=== PATIENT | male | born 1955 | race Caucasian/White ===

== ENCOUNTER 2020-02-25 09:30 | Outpatient (RCR) | payer OTHER, SELFPAY ==
--- NOTE | 2020-01-27 12:04 | HP.PTEVAL ---
Patient's Visit Information GLORIA GALICIA is a 64 year old M referred to Physical Therapy by BRI Chavez with a diagnosis of STRAIN OF MUSCLE FASCIA AND TENDON OF LOW BACK. Date of Evaluation: 01/27/20 Physical Therapist: Sameer Maher, PT, Cert MDT, OCS - Visit Plan Frequency: 3x /Week Duration: 4 Weeks Plan: PT INTERVENTIONS ALYSSIA EX'S ,MODALTIES PROGRESS TO GRADED DLS /POSTURAL EX'S,LE FLEXABLITY - Subjective This 64 y/o male presents to physical therapy with lumbar strain.Patient intiallly last week January 18 picking up fish tank and felt strain ,then January 24 felt pain when lifting gravel. Then felt sharp left L-S. [facility]en [facility] did seriod injections and pain MEDS/muscle relaxers.Patient had no diagnostics. Patient has no raicular symptoms. Coughing/sneeziing + . Bowel/Bladder-. Aggravating factors sitting,twistiing,bending,lifting. Alleviating walking ,erect posture. Patient symptoms affect function,ADLS and job demnads. Symptoms of back pain affects QOL.Okay to RTW with 5# retstrictions. 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 SOCIAL: SINGLE - Pain Left Back Pain Intensity (Out of 10): 8 Pain Intensity Range: 10 - Objective POSTURE: mild foward posture guarded. GAIT: reciprocal pattern guarded mild foward antalgic. SYMMTICAL: assymtries. PALAPTION: unremarkable. NEURO: denies parathesia/tingling,reflexes L3-4,L4-5,L5-S1 2/3. MMT: right quads/hams/hip 4/5,ankle 5/5,left quads 3+/5 with+ ANR ,hip flexion 4-/5,ankle 4/5. FLEXABLITY: hams mod tight - Special Tests L/S Slump test left side: Positive L/S Slump test right side: Negative L/S Left Straight Leg Raise: Positive L/S Right Straight Leg Raise: Negative Lumbar Standing: Flexion - Mechanical Response: No effect Lumbar Standing: Flexion - Symptoms During Testing: Increases Lumbar Standing: Flexion - Symptoms After Testing: Worse Lumbar Standing: Extension - Mechanical Response: Increases motion Lumbar Standing: Extension - Symptoms During Testing: Decreases Lumbar Standing: Extension - Symptoms After Testing: Better Lumbar Lying: Flexion - Mechanical Response: No effect Lumbar Lying: Flexion - Symptoms During Testing: Increases Lumbar Lying: Flexion - Symptoms After Testing: Worse Lumbar Lying: Extension - Mechanical Response: Increases motion Lumbar Lying: Extension - Symptoms During Testing: Decreases Lumbar Lying: Extension - Symptoms After Testing: Better - Goals Goal 1:: Patient to be I with HEP Goal Time Frame: 4-6 Weeks Goal 2:: Patient to be I with posture/body mechanics Goal Time Frame: 4-6 Weeks Goal 3:: Patient to decrease lumbar ROM for function of recovery Goal Time Frame: 4-6 Weeks Goal 4:: Pateint decrease pain by 70 % or > to increase function and RTW Goal Time Frame: 4-6 Weeks Goal 5:: Patient be d/c to prophalaxis Goal Time Frame: 4-6 Weeks Goal 6:: Patient to improve neck owestry score by 5 points or > to improve QOL. Goal Time Frame: 4-6 Weeks - Rehabilitation Potential Physical Therapy Diagnosis: This patient injuried back at work with mechanism of injury is flexion,responded well with lumbar extension alyssia ex's and correction of posture ,thus appears to have disc with possible derrangement ,blocked with flexion with pain ,poor lumbar ROM ,decrease gait and strength left leg wit + ANR Rehabilitation Potential: Good - Anticipated Interventions Patient/Client Instruction: Educate patient on: Condition, Plan of Care For the Purpose of:: To decrease pain, To increase ROM, To increase oxygenation perfusion, To improve ability to perform ADL's, To increase tolerance to activity/condition/position, To improve performance and independence with ADL's, To improve ability of physical actions for home/community/work/leisure, To improve health of tissue, To decrease soft tissue restriction, To increase flexibility/ROM, To improve ability to perform tasks related to life management Therapeutic Exercise to Include: Strength training, Body mechanics, Postural training, Flexibilty training, Dynamic Lumbar Stabilization, Alyssia Exercises For the Purpose of:: To decrease pain, To decrease swelling/inflammation, To increase ROM, To improve muscle performance and motor function, To improve ability to perform ADL's, To increase tolerance to activity/condition/position, To decrease level of supervision to perform tasks, To improve health of tissue, To decrease soft tissue restriction, To increase flexibility/ROM, To improve ability to perform tasks related to life management TENS: Yes IF ES: Yes Cryotherapy (ice pack, ice massage): Yes Thermo therapy (hot pack): Yes Ultrasound (thermal/non thermal): Yes For the Purpose of:: To decrease pain, To increase ROM, To improve gait and locomotor functions, To improve health of tissue Thank you for the opportunity to evaluate your patient. For Medicare and Medicare HMO plans, please review the plan of care and approve it. It will need to be FAXED BACK to us at [phone] for Medicare purposes. For Medicare only, by signing this I certify the plan of care. Please let me know if there are questions or concerns regarding this plan of care. Physician Signature: Date:
--- NOTE | 2020-02-25 10:06 | HP.PTDCSUM ---
It has been my pleasure to treat GLORIA GALICIA referred by BRI Chavez, with the diagnosis of STRAIN OF MUSCLE FASCIA AND TENDON OF LOW BACK for a total of 12 visit(s). Discharge Date: 02/25/20 Please see the following information for a summary of their discharge status. Subjective: Doing well.RTD Left Back Pain Intensity (Out of 10): 0 % Improvement: 98 Objective/Function: POSTURE: WFL. GAIT: RECIPROCAL PATTTERN. -SLR. MMT: QUADS/HAMS/HIP 5/5,ANKLE 5/5. LUMBAR ROM: WNL Goal 1:: Patient to be I with HEP Goal Progress: Goal Met Goal 2:: Patient to be I with posture/body mechanics Goal Progress: Goal Met Goal 3:: Patient to decrease lumbar ROM for function of recovery Goal Progress: Goal Met Goal 4:: Pateint decrease pain by 70 % or > to increase function and RTW Goal Progress: Goal Met Goal 5:: Patient be d/c to prophalaxis Goal Progress: Goal Met Goal 6:: Patient to improve neck owestry score by 5 points or > to improve QOL. Plan: D/C Discharge Comments: HEP If there are questions or concerns regarding this patient's physical therapy, please feel free to call me at [phone]. Thank you for the referral of this patient. Sincerely, Sameer Maher PT, Cert MDT, OCS
== END 2020-02-25 19:00 | disposition home or self-care (01) ==
LOC: PT 09:30
PROVIDERS: Referring Provider Physician Assistant; Visit Provider Physician Assistant
DX: S39.012D Strain of muscle, fascia and tendon of lower back, subsequent encounter (principal)
CPT/HCPCS: 97014; 97110; 97161; 97530; G0283

== ENCOUNTER → 2023-12-26 | Outpatient (CLI) | payer MEDICARE, SELFPAY ==
[2023-12-26 12:09] LABS: Absolute Lymphocyte Count 0.88 X10^3/uL (0.83-4.51); Absolute Neutrophil Count 2.5 X10^3/uL (2.0-7.7); Basophil# 0.04 X10^3/uL; Eosinophil# 0.22 X10^3/uL; Eosinophils% 5.3 % (0-5); Hematocrit 46.1 % (40-54); Lymphocyte # 0.88 X10^3/ul (0.83-4.51); Lymphocyte % 21.1 % (19-41); Mean Corp Hgb Conc 32.5 g/dL (32-36); Mean Corpuscular Hgb 30.5 pg (27.0-32.0); Mean Corpuscular Volume 93.9 fL (80-94); Mean Platelet Vol. 11.2 fl (6.2-12.0); Monocyte# 0.48 X10^3/uL; Monocyte% 11.5 % (0-10); NRBC Flagged by Analyzer 0 % (0-5); Neutrophil # 2.54 X10^3/uL (2.7-7.7); Neutrophil % 60.9 % (47-70); Platelet Count 203 K/mm3 (150-450); RBC Distribution Width CV 13.4 % (11.6-14.6); RBC Distribution Width SD 46.4 fl (35.1-43.9); Red Blood Count 4.91 M/mm3 (4.6-6.2); White Blood Count 4.2 K/mm3 (4.4-11.0)
[2023-12-26 12:30] LABS: Vitamin D,25 Hydroxy 46.7 ng/mL
[2023-12-26 12:51] LABS: ALB/GLOB Ratio 1.1 RATIO (0.9-2.4); AST(SGOT) 32 U/L (15-37); Alanine Aminotransfer ALT/SGPT 30 U/L (16-61); Albumin, Serum 3.8 g/dL (3.2-5.0); Alkaline Phosphatase 89 U/L (45-117); Anion Gap 6 (5-15); BUN 19 mg/dL (7-18); BUN/Creat Ratio 13.4 RATIO (10-20); Calcium,Total 9.3 mg/dL (8.5-10.1); Chloride 105 mmol/L (98-107); Cholesterol 233 mg/dL (200); Creatinine, Serum 1.42 mg/dL (0.70-1.30); EST Glomerular Filtration Rate 53 mL/min (>60); Est Glom Filt Rate - Afr Amer 64 mL/min (>60); Globulin 3.5 g/dL (2.2-4.2); Glucose 101 mg/dL (74-106); High Density Lipoprotein 52 mg/dL; PSA,Total - Annual Screen 0.75 ng/mL (0.00-4.00); Potassium 5.1 mmol/L (3.5-5.1); Protein, Total 7.3 g/dL (6.4-8.2); Sodium Level 139 mmol/L (136-145); Triglycerides 99 mg/dL; Very Low Density Lipoprotein 20 mg/dL (5-40)
== END | disposition home or self-care (01) ==
LOC: MTLAB 10:01
PROVIDERS: PCP Nurse Practitioner Family; Referring Provider Nurse Practitioner Family; Visit Provider Nurse Practitioner Family
DX: E55.9 Vitamin D deficiency, unspecified (principal); E78.5 Hyperlipidemia, unspecified; I10 Essential (primary) hypertension; Z12.5 Encounter for screening for malignant neoplasm of prostate
CPT/HCPCS: 36415; 80053; 80061; 82306; 84153; 85025; G0103

== ENCOUNTER 2024-01-08 09:46 | Day surgery (SDC) | payer MEDICARE, SELFPAY ==
[2024-01-08] VITALS (8 sets, daily range): BP systolic 111–157; BP diastolic 70–99; PULSE 43–55; RESP 16–18; TEMP 36.1–36.3; O2SAT 97–99; BMI 24.8
[2024-01-08] MEDS: Lactated Ringers 1,000 ML 15 ML IV (10:26)
--- NOTE | 2024-01-08 10:43 | PCM.PRE.AN2 ---
ASA Classification* ASA Classification ASA Classification: 2 Assessment & Plan Anesthesia* Anesthesia Assessment Anesthesia Assessment: Discussed sedation and/or anesthesia options, risks, benefits, and alternatives with patient/parents/legal guardian/POA. Questions invited. The patient/parents/legal guardian/POA seems to understand and agrees to proceed with anesthesia plan. Reviewed the physical assessment, medical history, allergy history and patient home medications list prior to surgery/procedure/anesthetic and documented any changes. Performed airway and anesthesia risk assessments. Anesthesia Type Anesthesia Type: MAC (see pre anesthesia written record for full assessment) Anesthesia Focused Assessment* Temperature: 96.9 F Pulse Rate: 47 Blood Pressure: 157/99 Respiratory Rate: 18 Pulse Ox: 99 Airway Assessment Mouth opens: >3 cm Mallampati Score: II Focused Labs Anesthesia Preop lab: CBC WBC 4.2 K/mm3 (4.4-11.0) L 12/26/23 10:24 RBC 4.91 M/mm3 (4.6-6.2) 12/26/23 10:24 Hgb 15.0 g/dL (13.0-16.5) 12/26/23 10:24 Hct 46.1 % (40-54) 12/26/23 10:24 Plt Count 203 K/mm3 (150-450) 12/26/23 10:24 CHEMISTRY Potassium 5.1 mmol/L (3.5-5.1) 12/26/23 10:24 Sodium 139 mmol/L (136-145) 12/26/23 10:24 BUN 19 mg/dL (7-18) H 12/26/23 10:24 Creatinine 1.42 mg/dL (0.70-1.30) H 12/26/23 10:24 Glucose 101 mg/dL (74-106) 12/26/23 10:24 COAG Pre-Assessment Diagnosis/Proposed Procedure Planned Operative Procedure(s): CSCOPE OA Anesthesia History 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 When Was Last Pacemaker Check QUESTION #4 FULL TEXT: You/Your Family Experience fever (hyperthermia) with Anesthesia Last Oral Intake Last Oral intake: Last Oral Intake NPO since 08:00 01/08/24 10:18 Meds taken in AM with sips of No 01/08/24 10:18 water? Meds patient instructed to take am of surgery PONV PONV - metal grinder: PONV - metal grinder Female No 01/07/24 08:35 HX of Motion Sickness No 01/07/24 08:35 HX of N/V After Surgery No 01/07/24 08:35 Non-Smoker Yes 01/07/24 08:35 Duration of Surgery greater No 01/07/24 08:35 than 60 minutes Number of Risk Factors 1 01/07/24 08:35 PONV Score Low Risk 01/07/24 08:35 Height & Weight Height & Weight: Anesthesia: Height & Weight Height 6 ft 1 in 01/08/24 10:18 Weight: 85.366 kg 01/08/24 10:18 Body Mass Index (BMI) 24.8 01/08/24 10:18 Respiratory Assessment Respiratory Assessment - metal grinder: Respiratory Tract Infection Hx - metal grinder Hx Respiratory Tract Infection No 01/07/24 08:35 STOP Sleep Apnea STOP Sleep Apnea - metal grinder: STOP Sleep Apnea - metal grinder Hx Hypertension No 01/07/24 08:35 Hx Sleep Apnea No 01/07/24 08:35 CPAP BIPAP Do you snore loudly (louder No 01/07/24 08:35 than talking or can be heard Do you often feel tired/ No 01/07/24 08:35 fatigued/ sleepy during daytime? Has anyone observed you stop No 01/07/24 08:35 breathing during sleep? STOP Results Negative 01/07/24 08:35 QUESTION #5 FULL TEXT : Do you snore loudly (louder than talking or can be heard through closed doors)? 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 Specify any problems Hx of Preganancy in last 3 N/A 01/07/24 08:35 Months Nurse Filling Out Transfusion DSCHRIBER 01/07/24 08:35 & Questions: Date: 01/07/24 01/07/24 08:35 Time: 08:37 01/07/24 08:35 Patient unable to answer at this time (ie. confused, unrespo /Reproduction History /Reproductive History - metal grinder: /Reproductive Hx- metal grinder Hx Now No 01/07/24 08:35 Gestational Age (in weeks): EDC: Hx Hx Para Hx Section SAB No 01/07/24 08:35 Active Medications Active Medications: Current Medications Generic Name Dose Route Start Last Admin Trade Name Freq PRN Reason Stop Dose Admin Lactated Ringer's 1,000 mls @ 15 mls/hr 01/08/24 10:00 01/08/24 10:26 IV 15 mls/hr .Q48H JACQUIE Administration PFSH Medical History Loss of hearing Wears contact lenses Alcohol use Arthritis High cholesterol Back pain Heartburn Non-smoker Leg cramps [facility] Home Medications ?Medication ?Instructions ?Recorded ?Last Taken ?Type cyclobenzaprine 10 mg tablet 10 mg PO TID PRN muscle spasm #20 07/28/21 Unknown Rx tabs arginine HCl (L-arginine) 500 mg 500 mg PO QDAY 01/01/24 01/04/24 History capsule ascorbic acid (vitamin C) 500 mg 500 mg PO DAILY 01/01/24 01/04/24 History tablet biotin 5,000 mcg chewable tablet 5,000 mcg PO QDAY 01/01/24 01/04/24 History coenzyme Q10 100 mg capsule 100 mg PO DAILY 01/01/24 01/04/24 History (CoQ-10) krill oil 500 mg capsule 500 mg PO QDAY 01/01/24 01/04/24 History levocarnitine 500 mg capsule 500 mg PO DAILY 01/01/24 01/04/24 History (L-Carnitine) vitamin K2 100 mcg capsule 500 mcg PO DAILY 01/01/24 01/04/24 History zinc gluconate 10 mg lozenges 10 mg PO DAILY 01/01/24 01/04/24 History cholecalciferol (vitamin D3) 50 50 mcg PO DAILY 01/07/24 01/04/24 History mcg (2,000 unit) capsule (Vitamin D3) vitamin B complex (Vitamins B 1 tab PO DAILY 01/07/24 01/04/24 History Complex tablet) vitamin E 200 unit capsule 402 mg PO DAILY 01/07/24 01/04/24 History Allergy/AdvReac Type Severity Reaction Status Date / Time poppyseed oil Allergy Puffy Eyes Verified 01/08/24 10:14 Family History Mother Brain tumor Surgical History History of esophagogastroduodenoscopy (EGD) History of repair of laceration Hx of foot surgery Hx of colonoscopy Social History household members: none number of children: 0 current occupational status: employed current occupation: Sales Admin. Smoking Status: Never smoker details: Rare alcohol substance use type: does not use Review of Systems (Anesthesia) ROS Narrative System reviewed and no additional complaints, except as documented.
--- NOTE | 2024-01-08 11:11 | HP.PCM_ITS ---
HPI - General General Date of Admission: 01/08/24 Date of Service: 01/08/24 Chief Complaint: Screening colonoscopy HPI Narrative GLORIA GALICIA, is a 68 M who presents today for screening colonoscopy. He has no significant past medical history. He does take a lot of supplementation on a daily basis. He does not have any chest pain or shortness of breath. He does not have any nausea, no vomiting or diarrhea. He tolerated apart without any problems. [facility] Medical History Loss of hearing Wears contact lenses Alcohol use Arthritis High cholesterol Back pain Heartburn Non-smoker Leg cramps History of pain when [facility], right eye Home Medications ?Medication ?Instructions ?Recorded ?Last Taken ?Type cyclobenzaprine 10 mg tablet 10 mg PO TID PRN muscle spasm #20 07/28/21 Unknown Rx tabs arginine HCl (L-arginine) 500 mg 500 mg PO QDAY 01/01/24 01/04/24 History capsule ascorbic acid (vitamin C) 500 mg 500 mg PO DAILY 01/01/24 01/04/24 History tablet biotin 5,000 mcg chewable tablet 5,000 mcg PO QDAY 01/01/24 01/04/24 History coenzyme Q10 100 mg capsule 100 mg PO DAILY 01/01/24 01/04/24 History (CoQ-10) krill oil 500 mg capsule 500 mg PO QDAY 01/01/24 01/04/24 History levocarnitine 500 mg capsule 500 mg PO DAILY 01/01/24 01/04/24 History (L-Carnitine) vitamin K2 100 mcg capsule 500 mcg PO DAILY 01/01/24 01/04/24 History zinc gluconate 10 mg lozenges 10 mg PO DAILY 01/01/24 01/04/24 History cholecalciferol (vitamin D3) 50 50 mcg PO DAILY 01/07/24 01/04/24 History mcg (2,000 unit) capsule (Vitamin D3) vitamin B complex (Vitamins B 1 tab PO DAILY 01/07/24 01/04/24 History Complex tablet) vitamin E 200 unit capsule 402 mg PO DAILY 01/07/24 01/04/24 History Allergy/AdvReac Type Severity Reaction Status Date / Time poppyseed oil Allergy Puffy Eyes Verified 01/08/24 10:14 Family History Mother Brain tumor Surgical History History of esophagogastroduodenoscopy (EGD) History of repair of laceration Hx of foot surgery Hx of colonoscopy Social History household members: none number of children: 0 current occupational status: employed current occupation: Sales Admin. Smoking Status: Never smoker details: Rare alcohol substance use type: does not use ROS Review of Systems ROS Unobtainable: other Constitutional Constitutional: Denies fatigue, fever(s), poor appetite, weight gain or weight loss ENT HEENT: Denies mouth lesions Cardiovascular Cardiovascular: Denies abdominal bloating, abdominal edema or abdominal pain Respiratory/Chest Respiratory/Chest: Denies change in mental status, change in phlegm color, chest congestion or chest tightness Gastrointestinal Gastrointestinal: Denies belching, bloating, change in bowel habits, change in stool character, chewing difficulty, coffee ground emesis, constipation, cramping, diarrhea, dyspepsia, dysphagia, early satiety, excessive flatus, fecal incontinence, heartburn, hematemesis, hematochezia, hemorrhoids, loose stools, melena, nausea, odynophagia, rectal bleeding, tenesmus, vomiting or weight changes Genitourinary Genitourinary: Denies abdominal discomfort, burning urination or itching Musculoskeletal Musculoskeletal: Reports as per HPI; Denies muscle weakness or myalgias Integumentary Integumentary: Denies jaundice Neurologic Neurologic: Denies lack of coordination or weakness Psychiatric Psychiatric: Denies confusion, depression, memory loss, mood swings, paranoia or suicidal ideation Endocrine Endocrinology: Denies systems reviewed and no addt'l complaints, except as documented Hematologic/Lymphatic Hematologic/Lymphatic: Denies anemia, easy bleeding, easy bruising or lymphadenopathy Allergic/Immunologic Allergic/Immunologic: Denies systems reviewed and no addt'l complaints, except as documented Vital Signs Vital Signs Vital Signs: 01/08/24 10:17 01/08/24 10:18 01/08/24 10:43 Temperature 96.9 F L 96.9 F L Temperature Source Temporal Pulse Rate 47 L 47 L Respiratory Rate 18 18 Respiratory Pattern Normal Blood Pressure 157/99 H 157/99 H Blood Pressure Mean 118 Blood Pressure Source Monitor Blood Pressure Position Semi-Fowlers Blood Pressure Location Left Arm Pulse Ox 99 99 Oxygen Delivery Method Room Air Weight Weight: 188 lb 3.2 oz Body Mass Index (BMI) 24.8 Physical Exam Const alert General Appearance: cooperative Orientation / Consciousness: oriented to person HEENT hearing grossly normal bilaterally Head and Scalp: normal to inspection Face and Sinus: face symmetric Nose: external nose normal Mouth: oral and palatal mucosa normal Eyes conjunctivae normal General Eye: normal appearance of both eyes Neck full ROM General: normal visual inspection Lymph Lymphatic: no lymphadenopathy noted Chest inspection of chest normal and palpation of chest normal Chest: symmetrical chest wall rise Resp normal respiratory effort Effort and Inspection: able to speak in complete sentences Cardio regular rate GI non-distended Percussion: normal to percussion Rectal Exam: deferred Neuro Speech: speech normal Gait (Neuro): normal gait Assessment & Plan Assessment/Plan (1) Encounter for screening for malignant neoplasm of colon: PLAN: He was explained alternatives, risk, benefits including not withstanding bleeding, infection, sepsis, perforation, need for emergent surgery and . He will have an ASA of 3.
--- NOTE | 2024-01-08 11:45 | OP.COLON_ITS ---
Patient Name: Hakan Selby Procedure Date: 01/08/2024 11:13 AM Date of : 1955 Age: 68 Procedure: Colonoscopy Indications: Screening for colorectal malignant neoplasm Providers: Ezra Rosario DO Medicines: Monitored Anesthesia Care Patient Profile: This is a 68 year old male. Refer to note in patient chart for documentation of history and physical. Last Colonoscopy: date unknown. Unable to locate last colonoscopy report. Complications: No immediate complications. Procedure: Pre-Anesthesia Assessment: - Prior to the procedure, a History and Physical was performed, and patient medications and allergies were reviewed. The patient is competent. The risks and benefits of the procedure and the sedation options and risks were discussed with the patient. All questions were answered and informed consent was obtained. Patient identification and proposed procedure were verified by the physician in the pre-procedure area. Mental Status Examination: alert and oriented. Airway Examination: normal oropharyngeal airway and neck mobility. Respiratory Examination: clear to auscultation. CV Examination: normal. Prophylactic Antibiotics: The patient does not require prophylactic antibiotics. Prior Anticoagulants: The patient has taken no anticoagulant or antiplatelet agents. ASA Grade Assessment: II - A patient with mild systemic disease. After reviewing the risks and benefits, the patient was deemed in satisfactory condition to undergo the procedure. The anesthesia plan was to use monitored anesthesia care (MAC). Immediately prior to administration of medications, the patient was re-assessed for adequacy to receive sedatives. The heart rate, respiratory rate, oxygen saturations, blood pressure, adequacy of pulmonary ventilation, and response to care were monitored throughout the procedure. The physical status of the patient was re-assessed after the procedure. After I obtained informed consent, the scope was passed under direct vision. Throughout the procedure, the patient's blood pressure, pulse, and oxygen saturations were monitored continuously. The Colonoscope was introduced through the anus and advanced to the cecum, identified by appendiceal orifice and ileocecal valve. The colonoscopy was performed without difficulty. The patient tolerated the procedure well. The quality of the bowel preparation was adequate. The ileocecal valve, appendiceal orifice, and rectum were photographed. Scope In: 11:22:39 AM Scope Withdrawal Time 0 hours 8 minutes 52 seconds Scope Out: 11:34:20 AM Total Procedure Duration Time 0 hours 11 minutes 41 seconds Findings: The perianal and digital rectal examinations were normal. The colon (entire examined portion) appeared normal. A few small-mouthed diverticula were found in the sigmoid colon. No additional abnormalities were found on retroflexion. Non-bleeding internal hemorrhoids were found during retroflexion. The hemorrhoids were Grade II (internal hemorrhoids that prolapse but reduce spontaneously). Impression: - The entire examined colon is normal. - Diverticulosis in the sigmoid colon. - Non-bleeding internal hemorrhoids. - No specimens collected. Recommendation: - Repeat colonoscopy in 10 years for screening purposes. - Continue present medications. Procedure Code(s): --- Professional --- G0121, Colorectal cancer screening; colonoscopy on individual not meeting criteria for high risk CPT copyright 2021 [employer]. All rights reserved. The codes documented in this report are preliminary and upon physical therapy supervisor review may be revised to meet current compliance requirements. Ezra Rosario DO 01/08/2024 11:44:49 AM This report has been signed electronically. Number of Addenda: 0 Note Initiated On: 01/08/2024 11:13 AM
--- NOTE | 2024-01-08 11:45 | OP.CCLET_ITS ---
01/08/2024 Micah Chirinos Re : Colonoscopy procedure for Hakan Selby Dear Brian This procedure was performed on December. My impressions and recommendations are as follows: Impressions : - The entire examined colon is normal. - Diverticulosis in the sigmoid colon. - Non-bleeding internal hemorrhoids. - No specimens collected. Recommendations : - Repeat colonoscopy in 10 years for screening purposes. - Continue present medications. My findings are described in the full procedure note, which is enclosed. If I can be of further assistance, please feel free to contact me at . Sincerely, Ezra Rosario, 01/08/2024 11:44:49 AM This report has been signed electronically.
--- NOTE | 2024-01-08 11:51 | PCM.POST.ANE ---
Anesthesia: Postop Eval I Current Vital Signs Temperature: 97.3 F Pulse Rate: 55 Blood Pressure: 121/71 Respiratory Rate: 16 Pulse Ox: 99 Oxygen Delivery Method: Room Air Assessment Airway patent: Yes Spontaneous unlabored respirations: Yes Mental status: Asleep nausea: No Vomiting: No Anesthesia Complication: No Fluid Hydration Crystalloid volume administer (ml): 600 Total IV fluid infused: 600 Progress Note Anesthesia document: Postop Eval 1 completed: Yes
--- NOTE | 2024-01-08 12:13 | PCM.POSTANE2 ---
Anesthesia Postop Eval I Sum Postop Eval Completion status Anesthesia document: Postop Eval 1 completed: Yes Anesthesia Postop Eval I Summary Anesthesia Postop Eval I Summary: Anesthesia Postop Eval I: Assessment Summary Airway patent Yes 01/08/24 11:53 [email or web address] Spontaneous unlabored Yes 01/08/24 11:53 [email or web address] respirations Mental status Asleep 01/08/24 11:53 [email or web address] nausea No 01/08/24 11:53 [email or web address] Vomiting No 01/08/24 11:53 [email or web address] Anesthesia Postop Eval I: Fluid Summary Crystalloid volume administer 600 01/08/24 11:54 [email or web address] (ml) Colloids volume administered ( ml) Blood Product volume administered (ml) Total IV fluid infused 600 01/08/24 11:54 [email or web address] Anesthesia Postop Eval I: Summary Notes Anesthesia Complication No 01/08/24 11:53 [email or web address] Anesthesia Complication Comment: Post-operative progress note Anesthesia: Postop Eval II Evaluation Mental status: Awake Pain Level: 0 nausea: No Vomiting: No
== END 2024-01-08 12:40 | disposition home or self-care (01) ==
LOC: EN 09:48 → AC 09:52
PROVIDERS: PCP Nurse Practitioner Family; Referring Provider Nurse Practitioner Family; Visit Provider Internal Medicine Gastroenterology
PROC: 0DJD8ZZ Inspection of Lower Intestinal Tract, Via Natural or Artificial Opening Endoscopic (ICD-10-PCS; CPT 45378; principal; 2024-01-08 10:55)
DX: Z12.11 Encounter for screening for malignant neoplasm of colon (principal); K57.30 Diverticulosis of large intestine without perforation or abscess without bleeding; K64.1 Second degree hemorrhoids; E78.00 Pure hypercholesterolemia, unspecified
CPT/HCPCS: G0121; J7120; J2405

== ENCOUNTER 2024-01-22 09:53 | Outpatient (CLI) | payer MEDICARE, SELFPAY ==
--- NOTE | 2024-01-22 10:00 | CDU_ITS ---
Reason For Study: RETINAL ARTERY OCCLUSION Rt. Velocities/BP Lt. Velocities/BP Prox CCA 85.3/20.4 cm/sec. Prox CCA 102.7/20.4 cm/sec. Mid CCA 93.0/22.6 cm/sec. Mid CCA 78.1/20.4 cm/sec. Dist CCA 72.1/19.3 cm/sec. Dist CCA 73.2/17.9 cm/sec. Prox ICA 61.4/20.8 cm/sec. Prox ICA 42.4/15.0 cm/sec. Mid ICA 63.6/20.8 cm/sec. Mid ICA 54.7/17.9 cm/sec. Dist ICA 99.3/29.3 cm/sec. Dist ICA 80.9/33.6 cm/sec. Rt. ICA/CCA = 99.3/93.0=1.1. Lt. ICA/CCA = 80.9/78.1=1.0. Prox ECA 100.2/9.3 cm/sec. Prox ECA 69.5/4.4 cm/sec. Rt. Vert. 34.9/10.3 cm/sec. Lt. Vert. 45.9/16.6 cm/sec. Right Extracranial There is intimal thickening but no significant atherosclerotic plaque noted in the right common carotid artery. There is heterogeneous, irregular atherosclerotic plaque noted in the right internal carotid artery. There is no significant atherosclerotic plaque noted in the right external carotid artery. Antegrade flow is noted in the right vertebral artery. Left Extracranial There is homogeneous, smooth atherosclerotic plaque noted in the left common carotid artery. There is heterogeneous, irregular atherosclerotic plaque noted in the left internal carotid artery. There is intimal thickening but no significant atherosclerotic plaque noted in the left external carotid artery. Antegrade flow is noted in the left vertebral artery. Procedure Carotid Duplex 11490. This is a Carotid Duplex examination using B-mode, color flow and specral Doppler. Exam performed in department. VL/Carotid Duplex Ultrasound Interpretation Summary Mild (<50%) stenosis right extracranial internal carotid. Mild (<50%) stenosis left extracranial internal carotid. Patent and antegrade vertebrals bilaterally. Ordering Physician: Angela Torres Referring Physician: Angela Torres Performed By: Ximena Gibson, RACHEL, RVT
--- NOTE | 2024-01-22 10:01 | ECHOD_ITS ---
Reason For Study: Retinal Artery Occlusion Procedure This was a 2D Doppler, Color Flow transthoracic echocardiogram. Myocardial strain analysis was performed in this exam to aid in the assessment of cardiac function. Exam performed in department. Left Ventricle Normal LV size. Left ventricular systolic function is lower limits of normal. The estimated ejection fraction is 53 %. No regional wall motion abnormalities noted. Right Ventricle Mildly dilated right ventricle. Normal systolic function. Atria Normal left atrium. Normal right atrium. Bubble contrast study negative for right to left interatrial shunt. Mitral Valve Normal mitral valve. Tricuspid Valve Normal tricuspid valve. Mild (1+) tricuspid valve insufficiency. Pulmonary artery systolic pressure is 30 mmHg. Aortic Valve Trisinus/trileaflet aortic valve. Mild focal aortic valve calcification. Pulmonic Valve Normal pulmonic valve. Great Vessels Normal aortic root. The pulmonary artery is normal size. Inferior vena cava collapse with respiration. Pericardium/Pleural No pericardial effusion. Medication 22 gauge I.V. with prn adaptor inserted into right arm. Performed a rapid injection of agitated mix of 9 cc saline and 1cc air to assess for atrial septal defect. MMode/2D Measurements & Calculations LVIDd: 5.5 cm IVSd: 1.1 cm LVOT diam: 2.0 cm LVIDs: 4.1 cm LVPWd: 1.1 cm RVDd: 4.3 cm FS: 24.5 % LVOT area: 3.3 cm2 Ao root diam: 3.4 cm LAV(MOD-bp): 72.2 ml LA A4 area: 18.9 cm2 LA dimension: 4.7 cm LAV(MOD-bp) Indexed: 34.4 ml/m2 LAV(MOD-sp2): 82.3 ml LAV(MOD-sp4): 54.7 ml RA A4 area: 20.2 cm2 Time Measurements MV dec time: 0.41 sec Doppler Measurements & Calculations MV E max jamar: 49.0 cm/sec Lat Peak E' Jamar: 8.8 cm/sec Med Peak E' Jamar: 5.3 cm/sec MV A max jamar: 49.5 cm/sec E/E' lat: 5.6 E/E' med: 9.3 MV E/A: 0.99 MV V2 max: 53.6 cm/sec MV P1/2t max jamar: 49.7 cm/sec Ao V2 max: 138.2 cm/sec MV max P.1 mmHg MV P1/2t: 129.4 msec Ao max P.6 mmHg MV V2 mean: 28.0 cm/sec MV dec slope: 112.6 cm/sec2 Ao V2 mean: 92.1 cm/sec MV mean P.38 mmHg Ao mean P.9 mmHg MV V2 VTI: 23.7 cm MVA(P1/2t): 1.7 cm2 Ao V2 VTI: 33.5 cm MVA(VTI): 3.6 cm2 AV (velocity ratio): 0.77 JONNA(I,D): 2.5 cm2 JONNA(V,D): 2.5 cm2 LV V1 max: 103.0 cm/sec SV(LVOT): 85.2 ml PA V2 max: 74.8 cm/sec LV V1 max P.2 mmHg PA max PG (full): 1.4 mmHg LV V1 mean P.4 mmHg LV V1 mean: 71.5 cm/sec LV V1 VTI: 25.8 cm PI end-d jamar: 123.2 cm/sec TR max jamar: 263.6 cm/sec TR max P.8 mmHg ECHO/Echo Complete Interpretation Summary Normal LV size. Left ventricular systolic function is lower limits of normal. The estimated ejection fraction is 53 %. Bubble contrast study negative for right to left interatrial shunt. Pulmonary artery systolic pressure is 30 mmHg. Ordering Physician: Angela Torres Referring Physician: Angela Torres Performed By: Austin Ryan RCS
== END 2024-01-22 23:59 | disposition home or self-care (01) ==
PROVIDERS: PCP Nurse Practitioner Family; Referring Provider Nurse Practitioner Family; Visit Provider Nurse Practitioner Family
DX: H34.211 Partial retinal artery occlusion, right eye (principal); E78.5 Hyperlipidemia, unspecified; Z82.49 Family history of ischemic heart disease and other diseases of the circulatory system; I65.23 Occlusion and stenosis of bilateral carotid arteries; I70.0 Atherosclerosis of aorta
CPT/HCPCS: 93306; 93880; A4216

== ENCOUNTER → 2024-10-18 | Outpatient (CLI) | payer MEDICARE, SELFPAY ==
--- NOTE | 2024-10-18 16:10 | RAD_ITS ---
EXAM: Left elbow CLINICAL HISTORY: Fall, elbow pain COMPARISON: None TECHNIQUE: Three-view FINDINGS: No acute fracture or dislocation. Normal alignment of the elbow joint. Posterior soft tissue swelling may be secondary to olecranon bursitis.. RAD/Elbow min 3 Views IMPRESSION: No acute fracture or dislocation. Possible olecranon bursitis. MRI may be useful. Reading Location: [id number]
== END | disposition home or self-care (01) ==
LOC: MTRAD 16:07
PROVIDERS: PCP Nurse Practitioner Family; Referring Provider Nurse Practitioner Family; Visit Provider Nurse Practitioner Family
DX: M25.522 Pain in left elbow (principal); Z91.81 History of falling
CPT/HCPCS: 73080